=== PATIENT | male | born 1955 | race African-American/Black ===

== ENCOUNTER 2016-10-23 09:53 | Emergency (ER) | payer MEDICAID ==
[~2016-10-23] VITALS: Ht 180.3 cm; Wt 86.0 kg
[2016-10-23 11:18] LABS: HEMATOCRIT. 37.8 % (42.0-52.0); HEMOGLOBIN. 12.7 g/dL (14.0-18.0); MEAN CORPUSCULAR HEMOGLOBIN 29.1 pg (28.0-32.0); MEAN CORPUSCULAR HGB CONC 33.6 g/dL (31.0-37.0); MEAN CORPUSCULAR VOLUME 86.5 fL (80.0-94.0); MEAN PLATELET VOLUME 7.9 fl (7.4-10.4); PLATELET 155 x1000/uL (130-400); RED BLOOD CELL COUNT 4.37 mill/uL (4.7-6.1); RED CELL DISTRIBUTION WIDTH 14.2 % (11.6-14.6); WHITE BLOOD COUNT 11.5 x1000/uL (4.5-11.0)
[2016-10-23 11:20] LABS: CHLORIDE 113 mEq/L (98-107)
[2016-10-23 11:27] LABS: DIFFERENTIAL COMMENT 1
[2016-10-23 11:29] LABS: ALBUMIN 3.6 g/dL (3.4-5.0); ANION GAP 15; CALCIUM 8.8 mg/dL (8.5-10.1); CARBON DIOXIDE 23 mEq/L (21-32); ETHANOL BLOOD < 10 mg/dL; INDEX HEMOLYSI 1 (1-3); INDEX ICTERIC 1 (1-4); INDEX LIPEMIC 1 (1-3); UREA NITROGEN BLOOD 11 mg/dL (7-21)
[2016-10-23 11:30] LABS: CLARITY URINE CLOUDY (CLEAR); COLOR URINE YELLOW (YELLOW); GLUCOSE URINE NEGATIVE (NEGATIVE); KETONES URINE NEGATIVE (NEGATIVE); LEUKOCYTE ESTERASE URINE NEGATIVE (NEGATIVE); NITRITE URINE NEGATIVE (NEGATIVE); OCCULT BLOOD URINE 3+ (NEGATIVE); PROTEIN URINE 1+ (NEGATIVE); SPECIFIC GRAVITY URINE 1.015 (1.005-1.030)
[2016-10-23 11:35] LABS: ALANINE AMINOTRANSFERASE 50 IU/L (13-61); PHENYTOIN 1.1 ug/mL (10-20); eGFR > 60 mL/min (>60)
[2016-10-23 11:36] LABS: VALPROIC ACID 4.7 ug/mL (50-100)
[2016-10-23 11:41] LABS: *BARBITURATES SCREEN URINE NEGATIVE (NEGATIVE); *BENZODIAZEPINES SCREEN URINE PRESUMTIVE POSITIVE (NEGATIVE); *COCAINE SCREEN URINE NEGATIVE (NEGATIVE); CANNABINOID URINE SCREEN NEGATIVE (NEGATIVE); ECSTASY MDMA SCREEN URINE NEGATIVE (NEGATIVE); METHADONE URINE SCREEN NEGATIVE (NEGATIVE); OPIATES URINE SCREEN NEGATIVE (NEGATIVE); PHENCYCLIDINE URINE SCREEN NEGATIVE (NEGATIVE)
[2016-10-23 11:44] LABS: *AMPHETAMINES SCREEN URINE NEGATIVE (NEGATIVE)
[2016-10-23 11:51] LABS: WBC URINE 0-2 /hpf (0-2)
[2016-10-23 11:52] LABS: BACTERIA URINE NONE SEEN; SQUAMOUS EPITHELIAL CELL URINE RARE /lpf (RARE/1+)
[2016-10-23 11:53] LABS: AMORPHOUS SEDIMENT URINE 3+ /lpf; COARSE GRANULAR CASTS URINE 0-5 /lpf; MUCUS URINE 1+ /lpf (NONE/TRACE)
[2016-10-23 12:02] LABS: ANISOCYTOSIS 1+; PLATELET ESTIMATE NORMAL
[2016-10-23] MEDS ORDERED: LORAZEPAM 1MG TABLET PO ONE (16:00)
[2016-10-23] MEDS ORDERED: PHENYTOIN SODIUM EXTENDED 100MG CAPSULE PO ONE (16:00)
[2016-10-23] MEDS ORDERED: VALPROIC ACID 250MG CAPSULE PO ONE (19:00)
[2016-10-24] MEDS: PHENYTOIN SODIUM EXTENDED 100MG CAPSULE PO SCH (11:30)
[2016-10-25] MEDS: PHENYTOIN SODIUM EXTENDED 100MG CAPSULE PO SCH (08:50)
[2016-10-25 13:05] VITALS: BP 124/78
== END 2016-10-25 14:09 | disposition home or self-care (01) ==
LOC: ER 10:00
DX: G40.909 Epilepsy, unspecified, not intractable, without status epilepticus (principal); Z91.14 Patient's other noncompliance with medication regimen; R31.9 Hematuria, unspecified; E87.6 Hypokalemia; E86.0 Dehydration; R09.02 Hypoxemia; R26.81 Unsteadiness on feet; E16.2 Hypoglycemia, unspecified; S80.212A Abrasion, left knee, initial encounter; Y93.89 Activity, other specified; X58.XXXA Exposure to other specified factors, initial encounter; Y92.89 Other specified places as the place of occurrence of the external cause; R80.9 Proteinuria, unspecified; H54.0 Blindness, both eyes; D72.0 Genetic anomalies of leukocytes; Z98.890 Other specified postprocedural states; G93.89 Other specified disorders of brain; Z59.0 Homelessness
CPT/HCPCS: 36415; 70450; 80053; 80165; 80185; 80305; 81001; 82962; 83036; 85025; 93005; 99285; G0482; Z7610